=== PATIENT | female | born 1990 | race Caucasian/White ===

== ENCOUNTER → 2020-11-28 09:51 | Outpatient (CLI) | payer BC, SELFPAY ==
[2020-11-28 10:24] LABS: Absolute Lymphocyte Count 1.43 X10^3/uL (0.83-4.51); Absolute Neutrophil Count 3.8 X10^3/uL (2.0-7.7); Basophil# 0.02 X10^3/uL; Basophil% 0.3 % (0-1); Eosinophil# 0.09 X10^3/uL; Eosinophils% 1.6 % (0-5); Lymphocyte # 1.43 X10^3/ul (0.83-4.51); Lymphocyte % 24.7 % (19-41); Mean Corp Hgb Conc 33.3 g/dL (32-36); Mean Corpuscular Hgb 30.3 pg (27.0-32.0); Mean Corpuscular Volume 90.9 fL (81-99); Mean Platelet Vol. 9.2 fl (6.2-12.0); Monocyte# 0.47 X10^3/uL; Monocyte% 8.1 % (0-10); NRBC Flagged by Analyzer 0 % (0-5); Neutrophil # 3.77 X10^3/uL (2.7-7.7); Neutrophil % 65.1 % (47-70); Platelet Count 290 K/mm3 (150-450); RBC Distribution Width CV 11.8 % (11.6-14.6); RBC Distribution Width SD 39.1 fl (35.1-43.9); Red Blood Count 4.29 M/mm3 (4.2-5.4); White Blood Count 5.8 K/mm3 (4.4-11.0)
[2020-11-28 11:25] LABS: HIV - WCH Non-Reactive (Nonreactive); Hepatitis B Surface Antigen Non-Reactive (Nonreactive); Hepatitis C Antibody Non-Reactive (Nonreactive); Rubella IgG Reactive (Nonreactive); Syphilis Antibodies Non-reactive
[2020-11-30 03:07] LABS: Chlamydia By Nucleic Acid AMP Negative (Negative)
[2020-11-30 09:30] LABS: HPV Reflexed? NOT INDICATED
[2020-11-30 09:46] LABS: Gonococcus By Nucleic Acid AMP Negative (Negative)
== END ==
PROVIDERS: Visit Provider Obstetrics & Gynecology
DX: Z34.81 Encounter for supervision of other normal pregnancy, first trimester (principal); Z12.4 Encounter for screening for malignant neoplasm of cervix; Z11.3 Encounter for screening for infections with a predominantly sexual mode of transmission
CPT/HCPCS: 36415; 85025; 86703; 86762; 86780; 86803; 87086; 87088; 87186; 87340; 87491; 87591; 88175; G0145

== ENCOUNTER → 2021-04-15 | Outpatient (CLI) | payer BC, SELFPAY ==
[2021-04-15 09:33] LABS: Hematocrit 32.1 % (37-47); Mean Corp Hgb Conc 34.3 g/dL (32-36); Mean Corpuscular Hgb 30.8 pg (27.0-32.0); Mean Corpuscular Volume 89.9 fL (81-99); Mean Platelet Vol. 9.8 fl (6.2-12.0); Platelet Count 234 K/mm3 (150-450); RBC Distribution Width CV 12.9 % (11.6-14.6); RBC Distribution Width SD 41.7 fl (35.1-43.9); Red Blood Count 3.57 M/mm3 (4.2-5.4); White Blood Count 7.1 K/mm3 (4.4-11.0)
[2021-04-15 09:58] LABS: Glucose Challenge Gest 1H 50g 83 mg/dL (70-140)
== END | disposition home or self-care (01) ==
LOC: WOBLAB 09:10
PROVIDERS: Visit Provider Obstetrics & Gynecology
DX: Z34.81 Encounter for supervision of other normal pregnancy, first trimester (principal)
CPT/HCPCS: 36415; 82950; 85027

== ENCOUNTER 2021-06-27 10:00 | Outpatient (CLI) | payer BC, SELFPAY | END 2021-06-27 23:59 | disposition short-term general hospital (02) | PROVIDERS: Visit Provider Obstetrics & Gynecology | DX: Z36.85 Encounter for antenatal screening for Streptococcus B (principal) | CPT/HCPCS: 87081 ==

== ENCOUNTER 2021-07-22 06:40 | Inpatient (IN) | payer BC, SELFPAY ==
[2021-07-22] VITALS (68 sets, daily range): BP systolic 98–160; BP diastolic 54–87; PULSE 71–112; TEMP 36.1–37.2; O2SAT 96–100; BMI 37.0
--- NOTE | 2021-07-22 07:05 | HP.PCM.OB_ITS ---
History and Physical Date of Admission: 07/22/21 Chief complaint: Induction of labor at term History of present illness: 31-year-old G4, P3 at 40 weeks and 5 days with TONI 07/17/2021 by LMP arrives for induction of labor at term. Denies headache, visual changes, chest pain, shortness of breath, nausea vomiting, right upper quadrant pain. Patient states good movement. Obstetric history: G1: 40-week female 09/29/2013 G2: 40-week male 08/06/2015 G3: 40-week female 09/03/2016 G4: Current Past medical history: None Medications: vitamin Past surgical history: [place] teeth extraction Allergies: No known drug allergies Social history: Former smoker, denies alcohol, denies drug use Family history: Denies history DVT or PE Review of systems: Besides above pertinent positives a full review of systems was performed and found to be negative Physical exam: Vitals: Pending General: Normal-appearing no acute distress HEENT: Normocephalic atraumatic no cervical lymphadenopathy Cardiac/respiratory: No use of accessory muscles, nonlabored breathing Abdomen: Soft, nontender, gravid Extremities: No peripheral edema normal peripheral pulses Psych: Normal affect normal demeanor nonpressured speech Labs: Pending Assessment plan: 31-year-old G4, P3 at 40 weeks and 5 days for induction of labor at term Admit labor and delivery CEFM GBS negative Pitocin and AROM induction Routine orders Anesthesia to see
[2021-07-22] MEDS: Lactated Ringers 1,000 ML 50 ML IV (07:35)
[2021-07-22 08:00] LABS: Absolute Lymphocyte Count 1.79 X10^3/uL (0.83-4.51); Absolute Neutrophil Count 7.1 X10^3/uL (2.0-7.7); Basophil# 0.02 X10^3/uL; Basophil% 0.2 % (0-1); Eosinophil# 0.09 X10^3/uL; Eosinophils% 0.9 % (0-5); Hematocrit 32.9 % (37-47); Lymphocyte # 1.79 X10^3/ul (0.83-4.51); Lymphocyte % 18.1 % (19-41); Mean Corp Hgb Conc 33.4 g/dL (32-36); Mean Corpuscular Hgb 28.6 pg (27.0-32.0); Mean Corpuscular Volume 85.5 fL (81-99); Mean Platelet Vol. 11.4 fl (6.2-12.0); Monocyte# 0.79 X10^3/uL; NRBC Flagged by Analyzer 0 % (0-5); Neutrophil # 7.11 X10^3/uL (2.7-7.7); Neutrophil % 72.1 % (47-70); Platelet Count 237 K/mm3 (150-450); RBC Distribution Width CV 13.4 % (11.6-14.6); RBC Distribution Width SD 41.2 fl (35.1-43.9); Red Blood Count 3.85 M/mm3 (4.2-5.4); White Blood Count 9.9 K/mm3 (4.4-11.0)
[2021-07-22] MEDS: Oxytocin 30 units/NS 500 ml 30 UNITS/500 ML IV.SOLN IV (08:04)
[2021-07-22] MEDS: Lactated Ringers 500 ML 999 ML IV (09:12)
[2021-07-22] MEDS: fentaNYL-bupivacaine (epidural) 100 ML BAG EPIDURAL ×3 (11:17→20:24)
--- NOTE | 2021-07-22 12:10 | PCM.PN.OB ---
Subjective Subjective Patient now comfortable with epidural Objective Data Objective Data Vital Signs: Vital Signs Temp Pulse BP Pulse Ox 98.3 F 81 125/67 H 100 07/22/21 10:45 07/22/21 12:05 07/22/21 12:05 07/22/21 12:05 Weight: 222 lb 8 oz Body Mass Index (BMI) 37.0 Intake & Output: Intake and Output for Last 24 Hours 07/20/21 07/21/21 07/22/21 23:59 23:59 23:59 Intake Total 595.73 / 595.73 Output Total 550 / 550 Balance 45.73 / 45.73 Lab / Micro Data Result Diagrams: 07/22/21 07:35 Labs: Laboratory Results - last 24 hr 07/22/21 07:35: WBC 9.9, RBC 3.85 L, Hgb 11.0 L, Hct 32.9 L, MCV 85.5, MCH 28.6, MCHC 33.4, RDW Std Deviation 41.2, RDW Coeff of Prema 13.4, Plt Count 237, MPV 11.4, Immature Gran % (Auto) 0.700, Neut % (Auto) 72.1 H, Lymph % (Auto) 18.1 L, [place] % (Auto) 8.0, Eos % (Auto) 0.9, Baso % (Auto) 0.2, Absolute Neuts (auto) 7.1, Absolute Lymphs (auto) 1.79, Nucleated RBC % 0 07/22/21 07:35: Blood Type B POSITIVE, Antibody Screen NEGATIVE Micro: Microbiology 07/22/21 07:35 Nasal Secretion SARS-CoV-2 Antigen (Rapid) - Final Physical Exam Const alert, oriented x3, no apparent distress, average body habitus, healthy appearing and well nourished HEENT normocephalic and moist oral mucous membranes Head and Scalp: atraumatic Face and Sinus: normal facial exam Neck full ROM Resp normal respiratory effort, no retractions and no use of accessory muscles Narrative: Cervical exam: 360/-3. AROM clear fluid Extremity normal to inspection, full ROM and no clubbing, cyanosis or edema Psych mental status grossly normal, affect normal, speech normal and activity/motor behavior normal Assessment & Plan (1) : PLAN: Patient seen and examined. Comfortable with epidural. AROM clear fluid. Continue current management
[2021-07-22] MEDS: Lactated Ringers 1,000 ML 200 ML IV ×2 (14:07→19:00)
[2021-07-22] MEDS: Oxytocin 30 units/NS 500 ml 30 UNITS/500 ML IV.SOLN 334 UNITS IV (21:47)
--- NOTE | 2021-07-22 22:06 | EX.PCM.OBRPT ---
Maternal Data Information Final TONI: 07/17/21 Vaginal Delivery Operative Information Date of Procedure: 07/22/21 Pre-Operative Diagnosis: [place] uterine at term Post-Operative Diagnosis: [place] uterine at term Surgery / Procedure Performed: Spontaneous Vaginal Delivery Type of Anesthesia: Epidural Estimated Blood Loss: 300cc Findings Description of Procedure: Spontaneous vaginal delivery of viable female. No nuchal cord. Baby to mom. Cord clamped and cut. Spontaneous delivery of placenta. First degree laceration repaired in usual fashion, hemostatic. Infant A Gender: Female (1 minute): 8 (5 minute): 9
[2021-07-23] VITALS (7 sets, daily range): BP systolic 111–130; BP diastolic 64–81; PULSE 93–99; RESP 16–18; TEMP 36.4–36.8; O2SAT 98
[2021-07-23] MEDS: Ibuprofen 600 MG Tablet PO (00:14)
[2021-07-23] MEDS: 0.9% Saline Lock 10 ML Syringe IV (00:18)
--- NOTE | 2021-07-23 08:35 | PCM.PN.OB ---
Subjective Subjective No overnight complaints. Pain well controlled. Objective Data Objective Data Vital Signs: Vital Signs Temp Pulse Resp BP Pulse Ox 98.1 F 93 18 111/64 98 07/23/21 02:56 07/23/21 02:56 07/23/21 02:56 07/23/21 02:56 07/23/21 02:56 Oxygen Delivery Method Room Air Weight: 222 lb 8 oz Body Mass Index (BMI) 37.0 Intake & Output: Intake and Output for Last 24 Hours 07/21/21 07/22/21 07/23/21 23:59 23:59 23:59 Intake Total 5027.93 / 5027.93 333 / 333 Output Total 1600 / 1600 1500 / 1500 Balance 3427.93 / 3427.93 -1167 / -1167 Lab / Micro Data Result Diagrams: 07/22/21 07:35 Labs: Laboratory Results - last 24 hr 07/22/21 07:35: Blood Type B POSITIVE, Antibody Screen NEGATIVE Micro: Microbiology 07/22/21 07:35 Nasal Secretion SARS-CoV-2 Antigen (Rapid) - Final Physical Exam Const alert, oriented x3, no apparent distress, average body habitus, healthy appearing and well nourished HEENT normocephalic Head and Scalp: atraumatic Face and Sinus: normal facial exam Neck full ROM Resp normal respiratory effort, no retractions and no use of accessory muscles Extremity normal to inspection and full ROM Psych mental status grossly normal, affect normal, speech normal and activity/motor behavior normal Assessment & Plan (1) Vaginal delivery: PLAN: day 1. Pain well controlled. Likely home tomorrow
[2021-07-24 02:45] VITALS: BP 126/84; PULSE 88; RESP 16; TEMP 36.9; O2SAT 99
[2021-07-24 07:34] VITALS: BP 129/75; PULSE 91; PULSE 93; O2SAT 99
[2021-07-24 07:35] VITALS: BP 129/75; PULSE 92; RESP 18; TEMP 36.8; O2SAT 99
[2021-07-24] MEDS: Senna/Docusate Sodium 1 Tablet PO (07:46)
--- NOTE | 2021-07-24 09:07 | PCM.PN.OB ---
Subjective Subjective Patient without complaints. Minimal vaginal bleeding and breast-feeding going well. Wants to go home today. Objective Data Objective Data Vital Signs: Vital Signs Temp Pulse Resp BP Pulse Ox 98.3 F 92 18 129/75 H 99 07/24/21 07:35 07/24/21 07:35 07/24/21 07:35 07/24/21 07:35 07/24/21 07:35 Oxygen Delivery Method Room Air Weight: 222 lb 8 oz Body Mass Index (BMI) 37.0 Intake & Output: Intake and Output for Last 24 Hours 07/22/21 07/23/21 07/24/21 23:59 23:59 23:59 Intake Total 5027.93 / 5027.93 333 / 333 Output Total 1600 / 1600 1500 / 1500 Balance 3427.93 / 3427.93 -1167 / -1167 Lab / Micro Data Result Diagrams: 07/22/21 07:35 Micro: Microbiology 07/22/21 07:35 Nasal Secretion SARS-CoV-2 Antigen (Rapid) - Final Assessment & Plan (1) Vaginal delivery: PLAN: Doing well day #2 status post routine spontaneous vaginal delivery. Will discharge to home with routine instructions.
--- NOTE | 2021-07-24 09:08 | PCM.DC ---
Discharge Instructions Diet Discharge Diet: No restrictions Activity Discharge Activity: May Drive (In 1 to 2 days if not taking narcotic pain medication), May Shower and May Take a Tub Bath May resume sexual activity in: 4-6 weeks Additional Activity Instructions:: Nothing in the vagina for 4-6 weeks. You may return to work/school in 6 weeks. Dressing / Incision Call your doctor if you observe: Fever of 101 or Higher, Inability to urinate, Inability to have a bowel movement and Using more than 1 pad per hour Follow Up Care Please Follow Up With: Selam Sage, DO When: Call [phone] to make an appointment with your doctor in 6 weeks. Test Results: Test results from this visit will be discussed in further detail at your follow-up appointment, if applicable. Discharge Plan Admission Admit Date/Time: 07/22/21 06:40 Primary Reason for Your Visit: Vaginal Delivery Attending Provider: Selam Sage Discharge Orders/Prescriptions Prescriptions: No Action Aspir-81 81 mg PO.IVFORM DAILY RF: 0 Prenatabs FA 1 tab PO.IVFORM DAILY RF: 0 Disposition Disposition (needs filled in before D/C Order can be placed): Home, Self Care
[2021-07-24 09:47] VITALS: BP 129/75; PULSE 92; RESP 18; TEMP 36.8; O2SAT 99
== END 2021-07-24 09:55 | disposition home or self-care (01) | DRG 807 ==
PROVIDERS: Obstetrics & Gynecology; Admitting Provider Student in an Organized Health Care Education/Training Program; Visit Provider Student in an Organized Health Care Education/Training Program
DX: O70.0 First degree perineal laceration during delivery (principal); Z37.0 Single live birth; Z3A.40 40 weeks gestation of pregnancy; Z87.891 Personal history of nicotine dependence
CPT/HCPCS: 59025; 59050; 85025; 86850; 86900; 86901; 87426; 99218; 99406; J7120; A4216; G0378

== ENCOUNTER → 2023-03-05 | Outpatient (CLI) | payer BC, SELFPAY ==
[2023-03-05 18:22] LABS: hCG Titer Quant., Serum 40 mIU/mL (1-3)
== END | disposition home or self-care (01) ==
LOC: LAB 16:23
PROVIDERS: PCP Family Medicine; Referring Provider Obstetrics & Gynecology; Visit Provider Obstetrics & Gynecology
DX: O26.851 Spotting complicating pregnancy, first trimester (principal); Z3A.00 Weeks of gestation of pregnancy not specified
CPT/HCPCS: 36415; 84702

== ENCOUNTER → 2023-03-07 | Outpatient (CLI) | payer BC, SELFPAY ==
[2023-03-07 17:01] LABS: hCG Titer Quant., Serum 11 mIU/mL (1-3)
== END | disposition home or self-care (01) ==
LOC: LAB 16:15
PROVIDERS: PCP Family Medicine; Visit Provider Obstetrics & Gynecology
DX: O26.859 Spotting complicating pregnancy, unspecified trimester (principal); Z3A.00 Weeks of gestation of pregnancy not specified
CPT/HCPCS: 36415; 84702

== ENCOUNTER → 2023-03-20 | Outpatient (CLI) | payer BC, SELFPAY ==
[2023-03-20 14:42] LABS: hCG Titer Quant., Serum 1 mIU/mL (1-3)
== END | disposition home or self-care (01) ==
LOC: LAB 14:00
PROVIDERS: PCP Family Medicine; Referring Provider Registered Nurse; Visit Provider Registered Nurse
DX: Z34.90 Encounter for supervision of normal pregnancy, unspecified, unspecified trimester (principal)
CPT/HCPCS: 36415; 84702

== ENCOUNTER 2024-08-21 18:05 | Emergency (ER) | payer BC, SELFPAY ==
[2024-08-21 18:06] VITALS: BP 141/110; PULSE 91; RESP 22; TEMP 36.1; O2SAT 100; BMI 32.1
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
--- NOTE | 2024-08-21 18:24 | CT_ITS ---
PROCEDURE: SPINE CERVICAL WITHOUT CONTRAS 08/21/2024 REASON FOR EXAM: INJURY/PAIN TECHNIQUE: Cervical spine CT without contrast. Coronal and Sagittal reconstruction series were provided. One or more dose reduction techniques were used (e.g., Automated exposure control, adjustment of the mA and/or kV according to patient size, use of iterative reconstruction technique RADIATION DOSE SUMMARY: DLP 1072.1 COMPARISON: None. FINDINGS: No evidence of acute cervical spine fracture. Prevertebral soft tissues normal limits. Normal facet alignment. No central canal or foraminal stenosis CT/Spine Cervical without Contras IMPRESSION: No findings of acute cervical spine fracture Reading Location: [id number]
--- NOTE | 2024-08-21 18:24 | CT_ITS ---
PROCEDURE: BRAIN/HEAD WITHOUT CONTRAST REASON FOR EXAM: INJURY/PAIN TECHNIQUE: Head CT without intravenous contrast. COMPARISON: None. FINDINGS: There is no acute intracranial hemorrhage, mass effect, or evidence of large acute infarct. Brain: Normal CSF Spaces: Normal Sinuses/Mastoids: Clear at visualized levels Bones: Unremarkable CT/Brain/Head without Contrast IMPRESSION: No acute intracranial abnormality One or more dose reduction techniques were used (e.g., Automated exposure contr ol, adjustment of the mA and/or kV according to patient size, use of iterative reconstruction technique). Reading Location: [id number]
[2024-08-21] MEDS: HYDROcodone Bitartrate/Apap 5/325 Tablet PO (18:31)
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
== END 2024-08-21 20:17 | disposition home or self-care (01) ==
PROVIDERS: Emergency Provider Emergency Medicine; PCP Family Medicine; Visit Provider Emergency Medicine
DX: S16.1XXA Strain of muscle, fascia and tendon at neck level, initial encounter (principal); S86.112A Strain of other muscle(s) and tendon(s) of posterior muscle group at lower leg level, left leg, initial encounter; S00.83XA Contusion of other part of head, initial encounter; V43.52XA Car driver injured in collision with other type car in traffic accident, initial encounter; Y92.410 Unspecified street and highway as the place of occurrence of the external cause
CPT/HCPCS: 70450; 72125; 99282

== ENCOUNTER 2024-08-27 12:23 | Emergency (ER) | payer BC, SELFPAY ==
[2024-08-27 12:23] VITALS: BP 124/71; PULSE 86; RESP 18; TEMP 37.2; O2SAT 99; BMI 31.6
--- NOTE | 2024-08-27 12:32 | EKG12_ITS ---
Test Reason : CP Blood Pressure : */* mmHG Vent. Rate : 69 BPM Atrial Rate : 69 BPM P-R Int : 170 ms QRS Dur : 82 ms QT Int : 390 ms P-R-T Axes : 67 53 29 degrees QTcB Int : 417 ms Normal sinus rhythm Normal ECG No previous ECGs available Confirmed by Musa Rider ([id number]), content editor ALBERT PATTON ([id number]) on 09/01/2024 10:06:00 AM Referred By: Confirmed By: Musa Rider
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
[2024-08-27] MEDS: Ibuprofen 400 MG Tablet 800 MG PO (13:13)
[2024-08-27 13:18] VITALS: BP 124/71; PULSE 86; RESP 18; TEMP 37.2; O2SAT 99
== END 2024-08-27 13:18 | disposition home or self-care (01) ==
PROVIDERS: Emergency Provider Emergency Medicine; PCP Family Medicine; Visit Provider Emergency Medicine
DX: R07.9 Chest pain, unspecified (principal); S20.20XA Contusion of thorax, unspecified, initial encounter; V43.52XA Car driver injured in collision with other type car in traffic accident, initial encounter; Y92.410 Unspecified street and highway as the place of occurrence of the external cause
CPT/HCPCS: 71046; 99282

== ENCOUNTER 2025-05-15 17:12 | Emergency (ER) | payer BC, SELFPAY ==
[2025-05-15 17:12] VITALS: BP 126/77; PULSE 89; RESP 18; TEMP 36.9; O2SAT 100; BMI 34.4
--- NOTE | 2025-05-15 18:13 | ED.VIS.FEGU ---
HPI HPI - Female History of Present Illness Chief Complaint: Vag Bld, Preg PFSH PFSH Medical History Vaginal delivery Macrosomia Pre-eclampsia Home Medications ?Medication ?Instructions ?Recorded ?Last Taken ?Type multivit-min no.71-iron fum 28 1 cap PO DAILY 05/12/25 05/15/25 History mg-folate no.1 1 mg-dha 300 mg capsule (PNV-[place]) Allergy/AdvReac Type Severity Reaction Status Date / Time No Known Allergies Allergy Verified 05/15/25 17:14 Family History Father Heart disease Mother Hypertension Uncle Blood clotting disorder Surgical History H/O wisdom tooth extraction Social History adopted: No household members: significant other and children housing: house number of children: 4 current occupational status: employed current occupation: [employer] current occupational exposures/hazards: No pets and animals: No history of recent travel: No sexually active: Yes Smoking Status: Former smoker quit date: 04/21/25 Electronic Cigarette Use: with nicotine quit status: quit date established alcohol intake: never substance use type: does not use well-balanced diet: daily or most days caffeine: Yes Type: tea Number of servings: 1 eating out: rarely or never during the past year weight has: remained stable what type of physical activity do you participate in: none saji/bahai: None seatbelt use: always do you feel safe at home: Yes additional social history: SKYLAR- Luis Angel White- MCTBeatrice EXAM Physical Exam Const Vital Signs: 05/15/25 17:12 05/15/25 19:12 05/15/25 20:24 Temperature 98.4 F 98.4 F Temperature Source Oral Pulse Rate 89 86 86 Respiratory Rate 18 16 16 Blood Pressure 126/77 H 126/77 H Blood Pressure Mean 93 93 Pulse Ox 100 98 98 Oxygen Delivery Method Room Air Room Air MDM MDM MDM Narrative Medical decision making narrative: HISTORY OF PRESENT ILLNESS: Chief complaint: Vaginal bleeding, first trimester 35-year-old female G 6, P 5 history of miscarriage, history of preeclampsia presents with vaginal bleeding at approximate weeks OB. Patient complains of vaginal bleeding spotting and light cramping. She states this began today. Notes light spotting. No trauma or falls. Notes history miscarriage 2 years ago. Denies fallopian tube ablation, surgery or STDs. Denies blood thinner use. Denies abdominal pain currently. Denies vomiting or diarrhea. Denies any urinary complaint such as dysuria frequency or urgency. REVIEW OF SYSTEMS: Pertinent positives: Vaginal bleeding, spotting and light cramping Pertinent negatives: As per HPI PHYSICAL EXAM: Nursing triage notes reviewed, Vital signs reviewed Constitutional: please see [facility] HENT: MMM Eyes: Pupils equal round and reactive to light, Extraocular muscles intact Neck: No stridor, no JVD, full neck ROM Lungs: Clear to auscultation, No wheezing or rales. No increased work of breathing, no conversational dyspnea, no accessory muscle use, no nasal flaring. No respiratory distress noted Heart: Regular rate and rhythm, No murmurs, No rubs and No gallops, 2+ distal pulses (radial, femoral, posterior tibial) in all extremities Abdomen: Soft, there is no tenderness, rigidity, rebound or guarding, no obvious peritoneal signs, no palpable pulsatile abdominal masses, no auscultated abdominal bruit : No CVAT, pelvic exam deferred by patient. Extremities: No edema Skin: No rash or lesions noted MEDICAL DECISION MAKING: Chief Complaint: please see HPI External records reviewed: Reviewed prior imaging: No recent pelvic ultrasound noted Factors affecting care: As per HPI Social determinants of health: Former smoker, currently History obtained from others: none Consults: none [facility] Narrative: The patient was initially hemodynamically stable, afebrile and nontoxic-appearing. Exam unremarkable. Pelvic exam deferred by patient. I considered the following differential diagnosis: Ectopic , miscarriage, vaginal bleeding early I obtained a broad lab and imaging work to further determine if the patient was suffering from a life-threatening etiology. Offered Tylenol however the patient refused any pain at this time. ALL IMAGES (IF OBTAINED) HAVE BEEN PERSONALLY REVIEWED AND INTERPRETED BY MYSELF. Transvaginal ultrasound showed live intrauterine acceptable heart rate CBC without leukocytosis, severe anemia, no thrombocytopenia. BMP without evidence of significant electrolyte abnormalities, no anion gap, no acute kidney injury. Urinalysis shows Serum hCG Patient's blood type is B+. No need for RhoGAM Repeat abdominal exam remained benign. Patient likely suffered from a threatened miscarriage. Will give prompt OB follow-up. Strict return precautions will be discussed. The patient and/or family, caregivers express understanding. The patient and/or family, caregivers agrees with the plan. Shared decision making: I will have a discussion with the patient and or visitors regarding risk/benefits of further testing or admission. They will be made aware of of the risk/benefits inherent in this decision they will be given the opportunity to voice understanding. Total critical care time today provided was at least 0 minutes. This excludes separately billable procedures. Critical care time (if documented) is secondary to the patient having high probability of clinically significant/life threatening deterioration in the patient's condition which required my urgent intervention. Impression: 1. First trimester 2. Threatened miscarriage 3. Subchorionic hemorrhage Dispo: Discharge home This note was generated with [email or web address] dictation software. It may contain incorrect words, spelling, and punctuation that were not noted in review of the chart prior to signing. Lab Data Labs: Laboratory Results - last 24 hr 05/15/25 05/15/25 18:40 19:35 WBC 9.0 RBC 4.42 Hgb 13.1 Hct 38.6 MCV 87.3 MCH 29.6 MCHC 33.9 RDW Std Deviation 38.9 RDW Coeff of Prema 12.2 Plt Count 349 MPV 9.5 Immature Gran % (Auto) 0.200 Neut % (Auto) 68.9 Lymph % (Auto) 22.6 [place] % (Auto) 6.7 Eos % (Auto) 1.4 Baso % (Auto) 0.2 Absolute Neuts (auto) 6.2 Absolute Lymphs (auto) 2.04 Nucleated RBC % 0 Sodium 138 Potassium 3.4 Chloride 104 Carbon Dioxide 23.3 Anion Gap 11 BUN 14 Creatinine 0.59 L Estim Creat Clear Calc 152.27 Est GFR (MDRD) Non-Af 121 BUN/Creatinine Ratio 23.5 H Glucose 105 H Calcium 9.8 HCG, Quant 00490 H Urine Color Yellow Urine Clarity Sl. Cloudy Urine pH 6.0 Ur Specific [place] 1.025 Urine Protein 15 H Urine Glucose (UA) Normal Urine Ketones Negative Urine Occult Blood Negative Urine Nitrite Negative Urine Bilirubin Negative Urine Urobilinogen Normal Ur Leukocyte Esterase Negative Urine RBC 0 SEEN Urine WBC 0-5 SEEN Ur Squamous Epith Cells 0-5 SEEN Urine Bacteria RARE Urine Mucus 2+ Blood Type B POSITIVE Radiography Diagnostic Testing: Clinical Impression(s) from Imaging Studies Obstetrics Ultrasound 05/15/25 18:31 IMPRESSION: Sonographic gestational age of 8 weeks and 1 day with TONI of 12/25/2025. Subchorionic hemorrhage measuring 1 x 0.8 x 0.6 cm. Right ovarian cyst measuring 2.5 cm and debris within the urinary bladder. Reading Location: [facility] Discharge Plan Triage Chief Complaint: Vag Bld, Preg ED Provider: Lamont Baltazar Dx/Rx/DC Orders Instructions: Miscarriage Threatened Prescriptions: No Action PNV-[place] 28-1-300 mg capsule 1 cap PO DAILY Primary Care Provider: Sammy Alcaraz Referrals: Mel Bonner DO [Med Staff - Active Staff, Obstetrics-Gynecology (OBGYN)] Activity Restrictions/Additional Instructions: Thank you for trusting us with your care today! Your labs and ultrasound was reassuring. Specifically ultrasound showed a live intrauterine with an appropriate heartbeat. You are likely suffering from a threatened miscarriage. Please take Tylenol (2 pills, 650 mg) every 6 hours as needed for pain and fever control. Please return to the emergency department if your symptoms change or worsen. Specifically develop severe abdominal pain, heavy vaginal bleeding, passage tissue, leakage of fluid or if you lose consciousness. Please follow with your OBGYN for further outpatient evaluation and management. Print Language: Hong Konger Disposition Disposition: Home, Self Care Discharge Date/Time: 05/15/25 20:31
--- NOTE | 2025-05-15 18:31 | US_ITS ---
PROCEDURE: TRANSVAGINAL W/PREG US 05/15/2025 REASON FOR EXAM: VAGINAL BLEEDING EARLY TECHNIQUE: Procedure Code: [id number] Modality: US Procedure: TRANSVAGINAL W/PREG US COMPARISON: None FINDINGS Uterus measures 11.8 x 7.7 x 6.6 cm. No fibroids. Cervix is closed. Intrauterine gestational sac measuring 27 mm, yolk sac measuring 4 mm, and CRL measuring 18 mm corresponding with sonographic gestational age of 8 weeks and 1 days. TONI of 12/25/2025. heart rate of 171 beats per minute. Anechoic structure adjacent to the gestational sac measuring 1 x 0.8 x 0.6 cm which may reflect a subchorionic hemorrhage. Right ovary measures 4.1 x 3.2 x 2.6 cm and left ovary measures 3.1 x 2.0 x 2.4 cm. There is normal bilateral symmetrical blood flow within bilateral ovaries. Right ovarian cyst measuring 2.5 x 2.1 x 1.6 cm. No significant free fluid within the cul-de-sac. Debris within the urinary bladder. US/Transvaginal w/Preg US IMPRESSION: Sonographic gestational age of 8 weeks and 1 day with TONI of 12/25/2025. Subch orionic hemorrhage measuring 1 x 0.8 x 0.6 cm. Right ovarian cyst measuring 2.5 cm and debris within the urinary bladder. Reading Location: [id number]
[2025-05-15 18:59] LABS: Hematocrit 38.6 % (37-47); Hemoglobin 13.1 g/dL (12.0-15.0); Immature Granulocytes Count 0.020 X10^3/uL (0.0-0.0); Mean Corp Hgb Conc 33.9 g/dL (32-36); Mean Corpuscular Volume 87.3 fL (81-99); Mean Platelet Vol. 9.5 fl (6.2-12.0); NRBC Flagged by Analyzer 0 % (0-5); Platelet Count 349 K/mm3 (150-450); RBC Distribution Width CV 12.2 % (11.6-14.6); RBC Distribution Width SD 38.9 fl (35.1-43.9); Red Blood Count 4.42 M/mm3 (4.2-5.4); White Blood Count 9.0 K/mm3 (4.4-11.0)
[2025-05-15 19:12] VITALS: PULSE 86; RESP 16; O2SAT 98
[2025-05-15 19:33] LABS: Anion Gap 11 (5-15); BUN 14 mg/dL (4-19); BUN/Creat Ratio 23.5 RATIO (10-20); Calcium,Total 9.8 mg/dL (7.6-11.0); Carbon Dioxide 23.3 mmol/L (21.0-32.0); Chloride 104 mmol/L (98-108); Estimated Creatinine Clearance 152.27 ml/min (50-250); Glucose 105 mg/dL (70-99); Potassium 3.4 mmol/L (3.3-5.1)
[2025-05-15 19:43] LABS: Red Blood Cells-Urine 0 SEEN /hpf (0-5)
[2025-05-15 19:44] LABS: Color, Urine Yellow (Yellow); Glucose, Dipstick Normal (Normal); Ketone-Dipstick Negative (Negative); Leukocyte Esterase-Dipstick Negative /ul (Negative); Nitrite-Dipstick Negative (Negative); Occult Blood-Urine Negative /ul (Negative); Protein-Dipstick 15 mg/dl (Negative); Specific Gravity, Urine 1.025 (1.002-1.030); Urine Bilirubin Dipstick Negative (Negative)
[2025-05-15 20:24] VITALS: BP 126/77; PULSE 86; RESP 16; TEMP 36.9; O2SAT 98
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
[2025-05-15 20:58] LABS: Mucous, Urine 2+ /hpf (<or=2+); Squamous Epithelial Cells - UA 0-5 SEEN /hpf (5-10)
== END 2025-05-15 20:31 | disposition home or self-care (01) ==
PROVIDERS: Emergency Provider Emergency Medicine; PCP Family Medicine; Visit Provider Emergency Medicine
DX: O20.0 Threatened abortion (principal); Z87.891 Personal history of nicotine dependence; O20.8 Other hemorrhage in early pregnancy; Z3A.00 Weeks of gestation of pregnancy not specified
CPT/HCPCS: 76817; 80048; 81001; 84702; 85025; 86900; 86901; 99283; A4216

== ENCOUNTER → 2025-05-23 | Outpatient (CLI) | payer BC, SELFPAY ==
[2025-05-24 21:07] LABS: Chlamydia By Nucleic Acid AMP Negative (Negative); Gonococcus By Nucleic Acid AMP Negative (Negative)
[2025-05-29 17:08] LABS: HPV APTIMA, High Risk Positive (Negative); HPV Genotype 16, Aptima Negative (Negative); HPV Genotype 18,45 Aptima Negative (Negative)
== END | disposition home or self-care (01) ==
LOC: LABSPEC 12:05
PROVIDERS: PCP Family Medicine; Visit Provider Student in an Organized Health Care Education/Training Program
DX: O09.90 Supervision of high risk pregnancy, unspecified, unspecified trimester (principal); Z3A.00 Weeks of gestation of pregnancy not specified; Z12.4 Encounter for screening for malignant neoplasm of cervix
CPT/HCPCS: 87086; 87088; 87491; 87591; 87624; 88175; G0145

== ENCOUNTER → 2025-05-30 | Outpatient (CLI) | payer BC, SELFPAY ==
[2025-05-30 15:35] LABS: Hematocrit 37.9 % (37-47); Hemoglobin 13.2 g/dL (12.0-15.0); Immature Granulocytes Count 0.020 X10^3/uL (0.0-0.0); Mean Corp Hgb Conc 34.8 g/dL (32-36); Mean Corpuscular Volume 86.1 fL (81-99); Mean Platelet Vol. 9.5 fl (6.2-12.0); NRBC Flagged by Analyzer 0 % (0-5); Platelet Count 293 K/mm3 (150-450); RBC Distribution Width CV 12.3 % (11.6-14.6); RBC Distribution Width SD 38.8 fl (35.1-43.9); Red Blood Count 4.40 M/mm3 (4.2-5.4); White Blood Count 7.4 K/mm3 (4.4-11.0)
[2025-05-30 16:39] LABS: AST(SGOT) 19 U/L (<=31); Alanine Aminotransfer ALT/SGPT 13 U/L (<=34); Albumin, Serum 4.1 g/dL (3.5-5.0); Alkaline Phosphatase 52 U/L (35-104); Anion Gap 12 (7-18); BUN 13 mg/dL (4-19); BUN/Creat Ratio 21.0 RATIO (10-20); Calcium,Total 9.3 mg/dL (7.6-11.0); Carbon Dioxide 23.3 mmol/L (20.0-29.0); Chloride 103 mmol/L (96-106); Globulin 1.9 g/dL (2.2-4.2); Glucose 88 mg/dL (70-99); HIV Nonreactive (Nonreactive); Hepatitis B Surface Antigen Nonreactive (Nonreactive); Hepatitis C Antibody Nonreactive (Nonreactive); Potassium 3.8 mmol/L (3.5-5.1); Syphilis Antibodies Nonreactive (Nonreactive)
== END | disposition home or self-care (01) ==
PROVIDERS: PCP Family Medicine; Visit Provider Student in an Organized Health Care Education/Training Program
DX: O09.90 Supervision of high risk pregnancy, unspecified, unspecified trimester (principal); O99.210 Obesity complicating pregnancy, unspecified trimester; Z3A.00 Weeks of gestation of pregnancy not specified; Z31.82 Encounter for Rh incompatibility status
CPT/HCPCS: 36415; 80053; 83036; 85025; 86703; 86762; 86780; 86803; 86850; 86900; 86901; 87340